=== PATIENT | female | born 1970 | race American Indian/Alaskan Native ===

== ENCOUNTER 2021-02-01 19:29 | Emergency (ER) | payer OTHER ==
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
== END 2021-02-01 21:24 | disposition home or self-care (01) ==
LOC: ED 19:29
DX: S20.219A Contusion of unspecified front wall of thorax, initial encounter (principal); M79.642 Pain in left hand; V43.52XA Car driver injured in collision with other type car in traffic accident, initial encounter; Y93.89 Activity, other specified; Y92.488 Other paved roadways as the place of occurrence of the external cause; Y99.8 Other external cause status
CPT/HCPCS: 71046; 99283